=== PATIENT | female | born 1955 | race Caucasian/White ===

== ENCOUNTER 2024-04-08 10:59 | Outpatient (CLI) | payer MEDICARE ==
[2024-04-08 11:48] LABS: #Basophils 0.11 10x3/uL (0.0-0.2); #Eosinophils 0.34 10x3/uL (0.0-0.5); #Monocytes 1.08 10x3/uL (0.0-1.1); #Neutrophils 4.32 10x3/uL (1.5-8.4); %Basophils 1.1 % (0.0-2.0); %Eosinophils 3.3 % (0.0-6.0); %Lymphocytes 43.3 % (18.0-47.0); %Monocytes 10.4 % (0.0-10.0); %Neutrophils 41.7 % (40.0-75.0); Hematocrit 43.9 % (34.9-44.5); Hemoglobin 14.3 g/dL (12.0-15.5); Mean Corpuscular HGB CONC 32.6 g/dL (32.0-36.0); Mean Corpuscular Hemoglobin 30.7 pg (27.0-33.0); Mean Corpuscular Volume 94.2 fL (81.6-98.3); Mean Platelet Volume 9.4 fL (7.4-10.4); Platelet Count 446 10x3/uL (150-450); RBC Distribution Width 14.2 % (11.5-14.5); Red Blood Cell (RBC) Count 4.66 10x6/uL (3.90-5.03); White Blood Cell (WBC) Count 10.4 10x3/uL (3.5-10.5)
[2024-04-08 12:09] LABS: Anion Gap 18 mmol/L (10-20); BUN (Urea Nitrogen) 13 mg/dL (9.8-20.1); Calc. Creatinine Clearance 0 mL/min (70-130); Calcium 10.1 mg/dL (7.8-10.44); Carbon Dioxide 25 mmol/L (23-31); Chloride 95 mmol/L (98-107); Estimated GFR 66; Glucose 137 mg/dL (80-115); Potassium 3.8 mmol/L (3.5-5.1); Sodium 134 mmol/L (136-145)
[2024-04-08 15:56] LABS: Hemoglobin A1c 8.2 % (4.0-6.0)
== END 2024-04-08 11:00 | disposition home or self-care (01) ==
LOC: CSHLAB 10:59
PROVIDERS: ATTEND Specialist
DX: Z01.818 Encounter for other preprocedural examination (principal); K63.5 Polyp of colon
CPT/HCPCS: 71046; 80048; 83036; 85025; 93005; 93010

== ENCOUNTER 2024-04-08 11:30 | Inpatient (IN) | payer MEDICARE ==
[2024-04-13] MEDS ORDERED: Acetaminophen 500 MG TAB ONE (07:40)
[2024-04-13] MEDS ORDERED: Ketorolac Tromethamine 30 MG (1 mL) VIAL ONE (07:40)
[2024-04-13] MEDS ORDERED: Sodium Chloride 0.9% 20 ML ONE (08:37)
[2024-04-13] MEDS ORDERED: Ropivacaine 0.5% HCl/PF (150 MG/30 ML VIAL) ONE (08:37)
[2024-04-13] MEDS ORDERED: fentaNYL 50 mcg/mL 1 mL Vial ONE (08:37)
[2024-04-13] MEDS ORDERED: Midazolam HCl 2 mg/2 ml Vial ONE (08:37)
[2024-04-13] MEDS ORDERED: Lidocaine 1% PF 5 ML VIAL ONE ×2 (08:37→10:18)
[2024-04-13] MEDS ORDERED: Ondansetron PF 4 MG/2 ML Vial ONE (10:18)
[2024-04-13] MEDS ORDERED: Dexamethasone 4 mg/ml Vial ONE (10:18)
[2024-04-13] MEDS ORDERED: Rocuronium Bromide 10 MG/ML (10ML VIAL) ONE (10:18)
[2024-04-13] MEDS ORDERED: SUGAMMADEX SODIUM 200 MG/2 ML VIAL ONE (10:18)
[2024-04-13] MEDS ORDERED: PROPOFOL 40 ML ONE (10:19)
[2024-04-13] MEDS ORDERED: Fentanyl 250 MCG/5 ML VIAL ONE (10:20)
[2024-04-13] MEDS ORDERED: Dexmedetomidine 200 MCG/2 ML VIAL ONE (10:21)
[2024-04-13] MEDS ORDERED: ceFOXitin 1 GM VIAL ONE (10:37)
[2024-04-13] MEDS ORDERED: Lidocaine 1% (PF) 30 ML VIAL ONE (10:48)
[2024-04-13] MEDS ORDERED: EPINEPHrine 1 MG/ML VIAL ONE (10:48)
[2024-04-13] MEDS ORDERED: ePHEDrine Sulfate 50 MG/10 ML VIAL ONE (11:16)
[2024-04-13] MEDS ORDERED: Glycopyrrolate 0.2 MG/ML 5 ML SYRINGE ONE (11:56)
[2024-04-13] MEDS ORDERED: Ondansetron PF 4 MG/2 ML Vial IVP PRN (13:23)
[2024-04-13] MEDS ORDERED: Promethazine HCl 25 MG/ML VIAL IM PRN (13:23)
[2024-04-13] MEDS ORDERED: hydrALAZINE 20 MG/ML VIAL SLOW IVP PRN (13:23)
[2024-04-13] MEDS ORDERED: dilTIAZem SR 90 MG CAP PO PRN (13:23)
[2024-04-13] MEDS ORDERED: Ipratropium/Albuterol 3 ML NEB NEB PRN (13:23)
[2024-04-13] MEDS: Insulin Regular, Human 100 UNIT/ML 10 ML VIAL SC PRN (13:41)
[2024-04-13 14:46] VITALS: BMI 30.8
[2024-04-13] MEDS: Sodium Chloride 0.9% 1,000 ML IV SCH (14:50)
[2024-04-13] MEDS: Ketorolac Tromethamine 30 MG (1 mL) VIAL IVP SCH (14:50)
[2024-04-13] MEDS: Morphine 4 MG/ML VIAL SLOW IVP PRN (16:50)
[2024-04-13] MEDS: Escitalopram Oxalate 10 mg Tablet PO SCH (20:45)
[2024-04-13] MEDS: Famotidine 20 MG TAB PO SCH (20:45)
[2024-04-13] MEDS: Rosuvastatin 20 MG TAB PO SCH (20:45)
[2024-04-13] MEDS: Famotidine/PF 20 mg/2ml Vial SLOW IVP SCH (20:46)
[2024-04-13] MEDS: Morphine 2 MG/ML VIAL SLOW IVP PRN (21:52)
[2024-04-14 04:19] LABS: #Basophils 0.02 10x3/uL (0.0-0.2); #Eosinophils 0.01 10x3/uL (0.0-0.5); #Monocytes 1.09 10x3/uL (0.0-1.1); #Neutrophils 12.06 10x3/uL (1.5-8.4); %Basophils 0.1 % (0.0-2.0); %Eosinophils 0.1 % (0.0-6.0); %Lymphocytes 15.4 % (18.0-47.0); %Neutrophils 76.9 % (40.0-75.0); Hematocrit 33.9 % (34.9-44.5); Hemoglobin 11.5 g/dL (12.0-15.5); Mean Corpuscular HGB CONC 33.9 g/dL (32.0-36.0); Mean Corpuscular Hemoglobin 31.4 pg (27.0-33.0); Mean Corpuscular Volume 92.6 fL (81.6-98.3); Mean Platelet Volume 9.4 fL (7.4-10.4); Platelet Count 370 10x3/uL (150-450); Red Blood Cell (RBC) Count 3.66 10x6/uL (3.90-5.03); White Blood Cell (WBC) Count 15.7 10x3/uL (3.5-10.5)
[2024-04-14 04:29] LABS: Anion Gap 15 mmol/L (10-20); BUN (Urea Nitrogen) 13 mg/dL (9.8-20.1); Calc. Creatinine Clearance 79 mL/min (70-130); Calcium 8.5 mg/dL (7.8-10.44); Carbon Dioxide 21 mmol/L (23-31); Chloride 104 mmol/L (98-107); Estimated GFR 80; Glucose 183 mg/dL (80-115); Sodium 136 mmol/L (136-145)
[2024-04-14] MEDS: Levothyroxine Sodium 75 MCG TAB PO SCH (06:40)
[2024-04-14] MEDS: Levothyroxine Sodium 100 MCG TAB PO SCH (06:40)
[2024-04-14] MEDS: glyBURIDE 5 MG TAB PO SCH (09:42)
[2024-04-14] MEDS: metFORMIN 500 MG TAB PO SCH (09:43)
[2024-04-14] MEDS: Enoxaparin 40 MG (0.4 mL) SYRINGE SC SCH (10:55)
[2024-04-14] MEDS ORDERED: Acetaminophen 325 MG TAB PO PRN (13:12)
[2024-04-14] MEDS: Sodium Chloride 0.9% 1,000 ML IV SCH (14:42)
[2024-04-15] MEDS: HYDROcodone/Acetaminophen 7.5/325 mg Tablet PO PRN (05:55)
[2024-04-15 12:44] VITALS: BP 164/77; TEMP 98
== END 2024-04-15 13:57 | disposition home or self-care (01) | DRG 331 ==
LOC: CSHTELE 04-13 07:12
PROVIDERS: ADMIT Specialist; ATTEND Specialist
PROC: 0DTF4ZZ Resection of Right Large Intestine, Percutaneous Endoscopic Approach (ICD-10-PCS; principal; 2024-04-13)
DX: D12.2 Benign neoplasm of ascending colon (principal); I10 Essential (primary) hypertension; E78.00 Pure hypercholesterolemia, unspecified; E11.9 Type 2 diabetes mellitus without complications; E55.9 Vitamin D deficiency, unspecified; E03.9 Hypothyroidism, unspecified; Z79.890 Hormone replacement therapy; Z79.899 Other long term (current) drug therapy; Z79.84 Long term (current) use of oral hypoglycemic drugs; Z79.82 Long term (current) use of aspirin; Z86.73 Personal history of transient ischemic attack (TIA), and cerebral infarction without residual deficits; Z90.49 Acquired absence of other specified parts of digestive tract; Z98.51 Tubal ligation status; Z87.891 Personal history of nicotine dependence
CPT/HCPCS: 36415; 36416; 80048; 85025; 88307; 88313; 94762; A4649; C1889; J0171; J0694; J1100; J1650; J1815; J1885; J2250; J2272; J2405; J2704; J2795; J3010; J7030